=== PATIENT | female | born 1955 | race Two or more races ===

== ENCOUNTER 2023-03-31 09:23 | Emergency (ER) | payer BC, OTHER ==
[~2023-03-31] VITALS: Ht 182.9 cm; Wt 83.0 kg
[2023-03-31 10:23] VITALS: BP 121/80; PULSE 83; RESP 16; TEMP 98.4; O2SAT 98
== END 2023-03-31 11:31 | disposition home or self-care (01) ==
LOC: ER 09:23 → EDBD 09:23 → ER 11:26
DX: S39.012A Strain of muscle, fascia and tendon of lower back, initial encounter (principal); S39.013A Strain of muscle, fascia and tendon of pelvis, initial encounter; R51.9 Headache, unspecified; V49.59XA Passenger injured in collision with other motor vehicles in traffic accident, initial encounter; Y93.89 Activity, other specified; Y92.410 Unspecified street and highway as the place of occurrence of the external cause; Y99.8 Other external cause status
CPT/HCPCS: 70450; 72100; 72170